=== PATIENT | male | born 2000 | race Caucasian/White ===

== ENCOUNTER → 2019-12-11 | Outpatient (CLI) | payer OTHER ==
[~2019-12-11] MED LIST: DECA4TAB PO; DEXA4TA PO; DOXY-350 PO; KEFL500C17 PO; ZANT150T40 PO
--- NOTE | 2019-12-11 09:58 | REP ---
Clinical: Splenomegaly. Technique: Real time carmichael scale ultrasound examination using curved array transducer. Findings: Spleen measures 10.0 x 10.5 x 5.0 cm and demonstrates normal parenchymal echo texture without focal splenic lesion identified. No perisplenic fluid noted. Impression: Normal appearing spleen.
== END ==
LOC: M WHC 08:51
PROVIDERS: ATTEND Internal Medicine Medical Oncology
DX: D69.3 Immune thrombocytopenic purpura (principal)